=== PATIENT | female | born 1955 | race Caucasian/White ===

== ENCOUNTER 2018-10-28 22:30 | Inpatient (IN) | payer OTHER ==
[~2018-10-28] VITALS: Ht 167.6 cm; Wt 51.0 kg
[2018-10-28 23:57] VITALS: BP 112/85; PULSE 86; TEMP 97.6
[2018-10-29] VITALS (14 sets, daily range): BP systolic 112–173; BP diastolic 70–91; PULSE 80–91; TEMP 97.6–98.7
[2018-10-29 01:02] LABS: BASO % 0.1 % (0.0-2.0); HEMATOCRIT 33.4 % (37.0-47.0); HEMOGLOBIN 11.5 g/dl (12.5-16.0); LYMPH # 0.8 (1.2-3.4); LYMPH % 6.4 % (20.0-51.0); MEAN CELL VOLUME 84 fl (80.0-100.0); MEAN CORPUSCULAR HEMOGLOBIN 29 pg (27.0-31.0); MEAN CORPUSCULAR HGB CONC 34 g/dl (33.0-37.0); MEAN PLATELET VOLUME 10.1 fl (7.4-10.4); MONO # 0.4 (0.1-0.6); MONO % 3.6 % (1.7-9.3); PLATELET COUNT 183 K/mm3 (130-400); RED BLOOD COUNT 3.97 M/mm3 (4.10-5.30); REDCELL DISTRIBUTION WIDTH-CV 13.1 % (11.5-14.5)
[2018-10-29 01:04] LABS: ARTERIAL BLD GAS O2 SATURATION 89.4 % (92-100); ARTERIAL BLD GAS TCO2 CT 22.3; ARTERIAL BLOOD GAS BASE EXCESS -2.6 (-2-2); ARTERIAL BLOOD GAS HCO3 21.3 meq/L (22-26); ARTERIAL BLOOD GAS pH 7.41 (7.35-7.45)
[2018-10-29 01:07] LABS: INR 1.2 (0.8-3.0); PROTHROMBIN TIME 13.3 SECONDS (9.7-12.8)
[2018-10-29 01:36] LABS: ALBUMIN 3.9 gm/dL (3.5-5.0); BILIRUBIN,TOTAL 0.8 mg/dL (0.0-1.0); CREATININE, serum 0.9 (0.52-1.25); POTASSIUM 4.2 mmol/L (3.4-5.0); TOTAL PROTEIN 6.9 gm/dL (6.4-8.2)
[2018-10-29 01:44] LABS: PRE ALBUMIN 20.1 mg/dL (17.6-36.0)
--- NOTE | 2018-10-29 05:27 | NUR ---
Pt arrived on floor transferred from [facility], she has had some C/O pain in her right hip, VS have been stable. Admission assessments have been completed. An 18fr culver has been placed, IV access maintained POLLY hose applied to thwe unaffected leg and SCDs implemented.
--- NOTE | 2018-10-29 06:55 | NUR ---
awake resting in bed, bedside shift report received from WILLIAM Lopez
--- NOTE | 2018-10-29 07:29 | NUR ---
radiology techs here and patient to radiology for CT scan
--- NOTE | 2018-10-29 07:50 | NUR ---
returned per bed from CT scan
--- NOTE | 2018-10-29 08:07 | NUR ---
LUIS ALBERTO Rincon notified of n refugio clearance for surgery
--- NOTE | 2018-10-29 08:15 | NUR ---
resting in bed, full assessment completed, see interventions for further info, #20 G IV started in R forearm,
--- NOTE | 2018-10-29 09:15 | NUR ---
Dr Miller and care team in to see patient
--- NOTE | 2018-10-29 09:33 | NUR ---
to surgery per bed
--- NOTE | 2018-10-29 10:17 | NUR ---
SW attended clinical rounds to discuss discharge planning. Patient will have surgery today. 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 Patient lives in [place] and [facility] [place], [place]. Patient does not use any DME or home health services in the home. Patient does not have a DPOA and is not interested in completing one at this time. Patient's reported that if patient needs post acute rehab, he would like her to go somewhere in [place].
--- NOTE | 2018-10-29 13:15 | NUR ---
returned to room per bed from PACU, awake and alert but sleepy, IV infusing and placed on pump at 100ml/hr, O2 on at 3L/NC adn O2 sat 100%, aquacel dressing to right hip CD&I and ice in place, SCDs and POLLY hose on bilaterally, has sensation to feet and is able to do ankle pumps, visits with
--- NOTE | 2018-10-29 14:30 | NUR ---
appears to be sleeping, resp quiet and easy
--- NOTE | 2018-10-29 15:47 | NUR ---
at bedside, patient continues to sleep
--- NOTE | 2018-10-29 17:18 | NUR ---
resting in bed, offered something to eat but declines at this time
--- NOTE | 2018-10-29 18:47 | NUR ---
bedside shift report given to WILLIAM Guerra
--- NOTE | 2018-10-29 19:30 | NUR ---
REPORT RECEIVED-ASSUMED CARE FOR SECURITY EXPERT. ASSESSMENT COMPLETE. VS STABLE. A&O TO PLACE-"HOSPITAL" AND KNOWS WHO IS IN ROOM WITH HER-. HAS BEEN ALL OVER THE BED-VERY RESTLESS. TEACHING DONE ON KEEPING THE HIP IN CORRECT POSITION. REPOSITIONED WITH PILLOW SUPPORTS. WILL NOT ANSWER BASIC QUESTIONS. STATES SHE IS BEING DIFFICULT AND FEISTY. HAS CRIED DUE TO PAIN BUT REFUSING MEDICATION. OFFERED WATER AND DR PEPPER AND SQUEEZES LIPS SHUT. AQUACELL DRESSING TO RIGHT HIP WITH SMALL DIME SIZE DRAINAGE NOTED. CALL LIGHT IS WITHIN REACH. BED IN LOW POSITION/WHEELS LOCKED. WILL MONITOR.
--- NOTE | 2018-10-29 20:25 | NUR ---
Shift assessment complete. Pt resting in bed, sleepy but easy to wake, a&o, cooperative c cares. Pt denies pain at this time. R hip repair incision noted, aquacell dressing C/D/I. Ice to site. IV x2 patent. Perez to DD. Pt s needs at this time. Call light in reach, will monitor.
[2018-10-30 04:16] VITALS: BP 164/79; PULSE 89; TEMP 98.7
[2018-10-30 06:42] LABS: CALCIUM 7.8 mg/dL (8.4-10.2); CREATININE, serum 0.71 (0.52-1.25)
[2018-10-30 06:51] LABS: BASO % 0.1 % (0.0-2.0); EOS % 0.1 % (0-4.0); GRAN # 9.7 (1.4-6.5); GRAN % 84.1 % (42.2-75.2); LYMPH # 1.1 (1.2-3.4); LYMPH % 9.8 % (20.0-51.0); MEAN CELL VOLUME 84 fl (80.0-100.0); MEAN CORPUSCULAR HGB CONC 35 g/dl (33.0-37.0); MEAN PLATELET VOLUME 10.9 fl (7.4-10.4); MONO # 0.6 (0.1-0.6); MONO % 5.4 % (1.7-9.3); PLATELET COUNT 98 K/mm3 (130-400); RED BLOOD COUNT 2.75 M/mm3 (4.10-5.30); REDCELL DISTRIBUTION WIDTH-CV 13.3 % (11.5-14.5)
[2018-10-30 06:57] LABS: HEMATOCRIT 23.2 % (37.0-47.0); MEAN CORPUSCULAR HEMOGLOBIN 29 pg (27.0-31.0)
--- NOTE | 2018-10-30 07:19 | NUR ---
bedside shift report received from WILLIAM Guerra
--- NOTE | 2018-10-30 07:30 | NUR ---
appears to be dozing, awakened and full assessment completed, is oriented to self and knows she is in the hospital, but when asked about the year and president she doesn't answer she just looks away, her at bedside and she does know who he is, lights turned on and he will try and talk with her and help clear her head. SANDRO Renner in to see patient, patietn denies pain or needs
--- NOTE | 2018-10-30 08:10 | NUR ---
appears to be sleeping, states she has declined breakfast, encouraged him to order her something for breakfast and we will try to get her to eat
[2018-10-30 08:17] VITALS: BP 164/80; PULSE 91; TEMP 98.6
[2018-10-30 08:37] LABS: CHOLESTEROL RISK RATIO 3.4
--- NOTE | 2018-10-30 09:00 | NUR ---
aydee loly is here, repositioned her up in bed and head of bed elevated so she can eat, she says she doesn't want anything to eat, tried to encourage her she needs to eat to get better so she can go back to [place], states she doesn't want to go back, appears she is just being very "stubborn", tried to give her a bite of pancake and she tightens her lips, her is at bedside and also tries, he says she is being very stubborn and feisty
--- NOTE | 2018-10-30 09:30 | NUR ---
Dr Miller and care team in to see patient, physical therapy was in and assisted her up recliner but they stated she was a max assist, she remains very sleepy but when name is called she does arouse, she only answers with short answers and denies being hungry or in pain, Dr Miller spoke with her , will continue to monitor, O2 is off at this time and will recheck O2 sat on room air, IV to INT
--- NOTE | 2018-10-30 09:40 | NUR ---
SW and SW student attended clinical rounds. Patient is not very talkative today. PT and OT will see patient and give their recommendations. SW will contact the [employer] and inquire if they have certain rehab facilities they will cover.
--- NOTE | 2018-10-30 10:29 | NUR ---
Initial visit; Patient and thanked Behavioral Health Tech for looking in on her and offering God's blessings.
--- NOTE | 2018-10-30 10:42 | NUR ---
remains up in chair, begins to answer questions a little more apprpriately, when asked about taking aspirin she refuses, will try again later
[2018-10-30 10:44] LABS: ALBUMIN 2.7 gm/dL (3.5-5.0); BILIRUBIN UNCONJUGATED 0.3 mg/dL (0.0-1.1); BILIRUBIN,DIRECT 0.1 mg/dL (0.0-0.4); BILIRUBIN,TOTAL 0.4 mg/dL (0.0-1.0); TOTAL PROTEIN 5.2 gm/dL (6.4-8.2)
--- NOTE | 2018-10-30 11:15 | NUR ---
in chair and with eyes open, gave her the aspirin and was able to take with Dr Pérez, she does not take the drink but when put to her lips she will take a drink and swallow and not press lips together, took 4-[address] pepper.
[2018-10-30 11:57] VITALS: BP 150/74; PULSE 93; TEMP 98
--- NOTE | 2018-10-30 13:00 | NUR ---
entered room and she appears to be sleeping, awakened and she took am zestril, then she took a few drinks of Dr Pérez and also ate container of vanilla pudding, was incontinent of loose bowel movement, she stood up from chair with assistance and stood while incontinent care provided, then assisted back to chair, moaning and c/o pain while moving, took tylenol 1000mg with drink of Dr Pérez, culver catheter discontinued, at bedside
--- NOTE | 2018-10-30 13:59 | NUR ---
physical therapy was in and assisted her back to bed, she is now sleeping soundly
--- NOTE | 2018-10-30 15:18 | NUR ---
continues to sleep
[2018-10-30 15:50] VITALS: BP 138/77; PULSE 91; TEMP 98.5
--- NOTE | 2018-10-30 15:51 | NUR ---
EBER spoke with patient's about work comp claim. He supplied the report # [id number]. EBER attempted to contact [facility] ([phone]) to inquire if there are certain rehab facilities they will cover. EBER left message.
--- NOTE | 2018-10-30 16:15 | NUR ---
continues to sleep, awakened her and she denies the need to void, checked and has not been incontinent, given sips of Dr Elisa and tolerates well, will order her something for supper and encourage her to eat, remains at bedside
--- NOTE | 2018-10-30 17:14 | NUR ---
ladijason salcido delivered, attempted to feed her and she adamantly refuses, pulls the cover over her head and adamantly says no
--- NOTE | 2018-10-30 18:24 | NUR ---
denies urge to void and refuses to get up to bedside commode
--- NOTE | 2018-10-30 18:53 | NUR ---
a little more talkative and gives the name of her , bedside shift report given to WILLIAM Golden
[2018-10-30 19:35] VITALS: BP 130/64; PULSE 88; TEMP 98.3
--- NOTE | 2018-10-30 21:00 | NUR ---
ATTEMPT MADE TO ADMINISTER HS MEDICATIONS TO INCLUDE ASA, PEPCID, TYLENOL AND SENOKOT. ADAMANTLY REFUSES TO TAKE ANY MEDICATIONS. OFFERED [id number] LIPS SHUT AND WILL NOT TAKE ANYTHING. REPOSITIONED AT THIS TIME. HAD CRAMMED SELF INTO SIDE RAIL, LEGS BENT AND OFF PILLOWS. REFUSES TO STAY IN PROPER ALIGNMENT WITH TEACHING DONE ON NEED FOR PROPER ALIGNMENT FOR HEALING. DENIES NEEDING TO VOID. WILL CONTINUE TO MONITOR.
--- NOTE | 2018-10-31 00:30 | NUR ---
ATTEMPT MADE AGAIN TO ADMINISTER HS MEDICAIONS. REFUSES. WILL NOT DRINK. REPOSITIONED AGAIN-NO SUPPORT TO THE RIGHT EXTREMITY AND REFUSING TO KEEP IN PROPER ALLIGNMENT. WHEN ASKED IF SHE KNOWS WHERE SHE IS SHE STATES "HOSPITAL IN [place]. I BROKE MY DAMN HIP" WILL NOT ANSWER ANY MORE QUESTIONS, WILL NOT EXPRESS PAIN LEVEL OR NEEDS. ROLLS EYES WHEN YOU TRY TO EXPLAIN POSITIONING. BED IS IN LOW POSITION, ALARM SET, CALL LIGHT WITHIN REACH. WILL MONITOR.
--- NOTE | 2018-10-31 02:30 | NUR ---
ATTEMPT MADE TO REPOSITION SHE HAS LEGS BENT NO SUPPORT AND OUT OF ALIGNMENT. DID COOPERATE WITH THIS REPOSITIONING BUT WILL NOT TAKE IN ANY FLUID, MEDICATIONS. INCONTINENT OF URINE. WAS DUE TO VOID POST [place] REMOVAL. NOT ANSWERING ANY QUESTIONS AND BLANKLY STARES AT YOU. SQUEEZES LIPS SHUT. WILL MONITOR.
[2018-10-31 04:37] VITALS: BP 152/68; PULSE 88; TEMP 98.1
--- NOTE | 2018-10-31 05:29 | NUR ---
INCONTINENT OF URINE. SOAKED THE ENTIRE BED SO IT WAS A VERY LARGE VOID. DID NOT EVEN REALIZE THAT SHE HAD DONE THIS. . SHE DID ALLOW US TO ASSIST HER TO A STANDING POSITION USING THE WALKER AND A GAIT BELT BUT IT WAS VERY DIFFICULT FOR HER TO STAND. TWO ASSIST WAS NEEDED AND IT WAS STILL A STRUGGLE TO CONTROL HER. SHE IS IN OBVIOUS PAIN BUT IS DENYING ALL PAIN MEDICATIONS. OFFERED SOME WATER AND SHE DID TAKE A FEW SIPS, NOT MUCH. STILLS SEEMS VERY CONFUSED-ALMOST SEDATED BUT HAS TAKEN NO MEDICATIONS. WILL MONITOR.
[2018-10-31 06:52] LABS: BASO % 0.1 % (0.0-2.0); EOS % 0.3 % (0-4.0); GRAN # 8.8 (1.4-6.5); GRAN % 82.7 % (42.2-75.2); LYMPH # 1.2 (1.2-3.4); LYMPH % 10.9 % (20.0-51.0); MEAN CELL VOLUME 86 fl (80.0-100.0); MEAN CORPUSCULAR HGB CONC 33 g/dl (33.0-37.0); MONO # 0.6 (0.1-0.6); MONO % 5.2 % (1.7-9.3); PLATELET COUNT 112 K/mm3 (130-400); RED BLOOD COUNT 2.69 M/mm3 (4.10-5.30); REDCELL DISTRIBUTION WIDTH-CV 13.1 % (11.5-14.5)
[2018-10-31 06:56] LABS: HEMOGLOBIN 7.6 g/dl (12.5-16.0); MEAN CORPUSCULAR HEMOGLOBIN 28 pg (27.0-31.0)
[2018-10-31 06:57] LABS: CALCIUM 7.7 mg/dL (8.4-10.2); CREATININE, serum 0.75 (0.52-1.25); POTASSIUM 3.5 mmol/L (3.4-5.0)
[2018-10-31 07:27] VITALS: BP 156/75; PULSE 89; TEMP 98.2
--- NOTE | 2018-10-31 08:00 | NUR ---
PATIENT UP TO THE CHAIR WITH PHYSICAL THERAPY THIS MORNING. PATIENT IS DROWSY, BUT AROUSES EASILY TO NAME. PATIENT IS ORIENTED TO SELF. SEE PATIENT MORNING ASSESSMENT. IS PRESENT AT THE BEDSIDE. SMALL AMOUNT OF OLD DRAINAGE PRESENT ON RIGHT HIP AQUACEL DRESSING. POLLY HOSE TO BLE. POSITIVE PEDAL PULSES EQUAL BILATERALLY. CMS INTACT. CAP REFILL < 3 SECONDS. INT TO RIGHT FOREARM. WHEN PATIENT IS ASKED QUESTIONS SHE STARES OFF WITH A GLOSSY-EYED LOOK. PATIENT WIGGLED TOES WHEN ASKED TO SQUEEZE FINGERS. PATIENT IS REFUSING MEDICATIONS AND FOOD. BREAKFAST ORDERED AND ENCOURAGED. NO NEEDS AT THIS TIME. CALL LIGHT WITHIN REACH. CHAIR ALARM ON.
--- NOTE | 2018-10-31 08:25 | NUR ---
Alert but not oriented to place and time. Refuses to answer questions when asked. Appears to be in pain but refuses at this time. Refuses morning medications and breakfast. at bedside. Very helpful with answering questions upon assessment. Shift assessment charted. VSS. Pt resting in bed, staring off in space. Right leg elevated on pillow with ice pack to right hip. Side rails up x3. Call light in reach. Will continue to monitor.
--- NOTE | 2018-10-31 11:01 | NUR ---
PT refused breakfst inititally. Ordered oatmeal. Ate a few bites and sips of ensure for nurse. in room encouraging her to eat now. will continue to monitor.
--- NOTE | 2018-10-31 11:15 | NUR ---
reported pts last surgery she had, that she was in a nonverbal state that she is currently in for 3 days postop. Primary nurse notified.
[2018-10-31 12:00] VITALS: BP 110/68; PULSE 96; TEMP 98.3
--- NOTE | 2018-10-31 13:25 | NUR ---
Pt more comliant this afternoon. Agreed to get on commode to try and use the bathroom to collect a UA. Althrough unsuccessful, pt handle fairly well with 2 assist. Agreed to take tylenol for pain and her B12 pill. Resting in bed with eyes closed at this time. Call light in reach. Will continue to monitor.
[2018-10-31 17:45] VITALS: BP 139/79; PULSE 99; TEMP 98.4
--- NOTE | 2018-10-31 18:26 | NUR ---
PATIENT SLIGHTLY MORE VERBAL THIS AFTERNOON. PATIENT STATED THAT SHE HURT THIS AFTERNOON. WHEN PATIENT WAS OFFERED TYLENOL FOR PAIN SHE SAID YES. PATIENT WAS ABLE TO STATE THAT SHE NEEDED TO USE THE BATHROOM AND WAS ASSISTED TO THE COMMODE THIS AFTERNOON. MEALS AND FLUIDS ENCOURAGED. PATIENT DRINKING MORE TODAY THAN YESTERDAY REPORTED PER . PATIENT ATE SMALL AMOUNT OF BREAKFAST AND ENSURE SHAKES. PATIENT REFUSED LUNCH AND DINNER.
--- NOTE | 2018-10-31 19:07 | NUR ---
REPORT GIVEN TO WILLIAM CLAYTON.
[2018-10-31 19:34] VITALS: BP 138/64; PULSE 93; TEMP 98.7
--- NOTE | 2018-10-31 21:00 | NUR ---
REPORT RECEIVED. ASSUMED CARE FOR VB NET DEVELOPER. ASSESSMENT COMPLETE. VS STABLE. AQUACELL DRESSING TO RIGHT HIP WITH SMALL AMOUNT OF DRAINAGE. VERY RESTLESS TONIGHT-TRIED TO REPOSITION WITH PILLOWS BUT WILL REVERT BACK TO KNEES BENT. REFUSED ALL OF HER HS MEDCATIONS. DOES HAVE S/S PAIN-WILL GRIMACE AND MOAN A LITTLE BUT REFUSING TYLENOL. WAS AT BEDSIDE AT SHIFT CHANGE-SHE WOULD MAKE SMALL TALK. AFTER HE LEFT BACK TO YES/NO ANSWERS OR NOT ANSWERING AT ALL. FRESH ICE PACK APPLIED. ENCOURAGED TO CALL FOR ANY QUESTIONS OR CONCERNS. BED IN LOW POSITION, CALL LIGHT WITHIN REACH, WHEELS LOCKED. WILL MONITOR.
[2018-11-01] VITALS (7 sets, daily range): BP systolic 117–154; BP diastolic 67–79; PULSE 76–82; TEMP 97.9–99.7
--- NOTE | 2018-11-01 01:58 | NUR ---
REPOSITIONED IN BED AT THIS TIME-2 ASSIST. INCONTINENT OF A LARGE URINE, TEA COLORED. TRIED TO STAND AT SIDE OF BED BUT WOULDNT COOPERATE. LINENS CHANGED. CRYING OUT IN PAIN-ENCOURAGED TO TAKE SOME EXTRA STRENGTH TYLENOL. AGREED TO TAKE 1000MG OF TYLENOL, STILL REFUSING OTHER MEDICATIONS. FRESH ICE PACK APPLIED TO RIGHT HIP. BED IN LOW POSITION, WHEELS LOCKED, CALL RESTREPO IN REACH. WILL MONITOR.
[2018-11-01 07:00] LABS: BASO % 0.2 % (0.0-2.0); EOS # 0.1 (0.0-0.7); EOS % 0.8 % (0-4.0); GRAN # 6.7 (1.4-6.5); GRAN % 72.9 % (42.2-75.2); HEMATOCRIT 22.3 % (37.0-47.0); HEMOGLOBIN 7.6 g/dl (12.5-16.0); LYMPH # 1.7 (1.2-3.4); LYMPH % 18.6 % (20.0-51.0); MEAN CELL VOLUME 85 fl (80.0-100.0); MEAN CORPUSCULAR HEMOGLOBIN 29 pg (27.0-31.0); MEAN CORPUSCULAR HGB CONC 34 g/dl (33.0-37.0); MEAN PLATELET VOLUME 10.8 fl (7.4-10.4); MONO # 0.6 (0.1-0.6); PLATELET COUNT 132 K/mm3 (130-400); RED BLOOD COUNT 2.63 M/mm3 (4.10-5.30); REDCELL DISTRIBUTION WIDTH-CV 13.2 % (11.5-14.5)
[2018-11-01 07:06] LABS: CALCIUM 7.9 mg/dL (8.4-10.2); CREATININE, serum 0.8 (0.52-1.25); POTASSIUM 3.3 mmol/L (3.4-5.0)
--- NOTE | 2018-11-01 07:14 | NUR ---
CRITICAL POTASSIUM OF 3.3 CALLED TO [facility].
--- NOTE | 2018-11-01 08:05 | NUR ---
Pt Alert and oriented X4. Sitting up in bed visting with her this am. Ordered breakfast and tolerated morning meds very well. Shift assessment as charted. VSS. SCDs and hong hose on bilateral lower extremities. states she is almost back to her normal self again. Call light in reach. Will continue to monitor.
--- NOTE | 2018-11-01 10:20 | NUR ---
EBER met with patient and about post acute rehab options around [place], [place]. SW provided a list and patient chose 1. [facility] and 2. [facility]. EBER will contact both facilities and fax referrals.
--- NOTE | 2018-11-01 12:50 | NUR ---
TYLENOL 650 MG PO Q6H PRN [facility]ACE[facility] DELA CRUZ TO THIS NURSE.
[2018-11-01 16:56] LABS: RPR (VDRL) XXX
--- NOTE | 2018-11-01 18:32 | NUR ---
END OF SHIFT NOTE. SEE MORNING SHIFT ASSESSMENT. PATIENT SITTING UP IN BED THIS MORNING TALKING WITH HER . PATIENT ANSWERS ALL A&O QUESTIONS APPROPRIATELY. PATIENT ABLE TO IDENTIFY WHERE HER PAIN IS LOCATED. PATIENT TAKING PRN TYLENOL FOR PAIN. PATIENT'S NUTRITIONAL INTAKE IMPROVED. PATIENT GETTING UP TO THE COMMODE. NO INCONTINENT EPISODES THROUGHOUT THE DAY. PRESENT AT THE BEDSIDE THROUGHOUT THE SHIFT. CALL LIGHT WITHIN REACH. BED ALARMS USED.
--- NOTE | 2018-11-01 19:15 | NUR ---
REPORT GIVEN TO WILLIAM TATE.
--- NOTE | 2018-11-01 20:15 | NUR ---
Pt. sitting up in bed watching TV at this time. Pt. is A&OX3, assessment complete. INT to rt. forearm patent. Pt. reports pain to rt. hip at a 4 on pain scale, will give meds per orders. Pt. denies further needs, call light within reach.
[2018-11-02 04:29] VITALS: BP 143/65; PULSE 80; TEMP 98.6
--- NOTE | 2018-11-02 06:01 | NUR ---
Pt. slept well through the night. Pt. remains A&OX3. INT to rt. forearm patent. Pt. did get up to the bathroom 1 time through the night with 1 assist, gait belt and walker. Pt. denies further needs, call light within reach.
[2018-11-02 08:09] LABS: CREATININE, serum 0.74 (0.52-1.25); POTASSIUM 3.3 mmol/L (3.4-5.0)
[2018-11-02 10:11] VITALS: BP 133/72; PULSE 85; TEMP 98
[2018-11-02 12:21] VITALS: BP 113/62; PULSE 79; TEMP 98.2
[2018-11-02 16:05] VITALS: BP 142/75; PULSE 80; TEMP 98.7
--- NOTE | 2018-11-02 18:00 | NUR ---
Pain controlled with prn Tylenol. Mucinex given for c/o cough. Ambulates slowly with walker and assistance. Needs encouragement to increase activity. Family at bedside.
[2018-11-02 20:47] VITALS: BP 134/61; PULSE 89; TEMP 98.4
--- NOTE | 2018-11-02 23:04 | NUR ---
Completed assessment and medication administration; No report pain or discomfort at time of assessment; PT A&Ox4, BS active x4, right hip dressing in place with no increase in drainage; Post right hip replacement pending rehab placement near home in [place]; No further assessment or reported needs at time of exit; PT able to return to a comfortable position in bed with personal items and call light within reach; Will continue to monitor. CDA
[2018-11-03 00:49] VITALS: BP 105/59; PULSE 81; TEMP 99.3
--- NOTE | 2018-11-03 03:14 | NUR ---
PT resting well in bed; No further assessed or verbalized concerns at time of rounds; Will continue to monitor. CDA
[2018-11-03 03:58] VITALS: BP 92/35; PULSE 87; TEMP 97.9
[2018-11-03 04:22] VITALS: BP 131/61
--- NOTE | 2018-11-03 07:02 | NUR ---
Report given to WILLIAM Brooks; No significant changes or concerns at time of shift change. CDA
[2018-11-03 07:48] LABS: BASO % 0.4 % (0.0-2.0); EOS # 0.3 (0.0-0.7); EOS % 2.7 % (0-4.0); GRAN # 6.8 (1.4-6.5); GRAN % 70.2 % (42.2-75.2); LYMPH # 1.8 (1.2-3.4); LYMPH % 18.8 % (20.0-51.0); MEAN CELL VOLUME 86 fl (80.0-100.0); MEAN CORPUSCULAR HGB CONC 33 g/dl (33.0-37.0); MEAN PLATELET VOLUME 10.3 fl (7.4-10.4); MONO # 0.7 (0.1-0.6); MONO % 7.1 % (1.7-9.3); PLATELET COUNT 218 K/mm3 (130-400); RED BLOOD COUNT 2.54 M/mm3 (4.10-5.30); REDCELL DISTRIBUTION WIDTH-CV 13.1 % (11.5-14.5)
[2018-11-03 07:58] LABS: HEMATOCRIT 21.8 % (37.0-47.0); HEMOGLOBIN 7.2 g/dl (12.5-16.0); MEAN CORPUSCULAR HEMOGLOBIN 28 pg (27.0-31.0)
[2018-11-03 08:01] LABS: CALCIUM 8.1 mg/dL (8.4-10.2); CREATININE, serum 0.76 (0.52-1.25); POTASSIUM 3.9 mmol/L (3.4-5.0)
[2018-11-03 11:27] VITALS: BP 90/46; PULSE 84; TEMP 98.7
[2018-11-03 16:14] VITALS: BP 133/65; PULSE 78; TEMP 98.3
--- NOTE | 2018-11-03 18:00 | NUR ---
Right hip aquacell dressing CDI. Ambulated much better today with walker and standby assist. Minimal complaints of pain. Tylenol given.
[2018-11-03 18:32] LABS: COLLECTION METHOD CLEAN CATCH
[2018-11-03 18:38] LABS: MUCOUS Present /lpf; PH 5 (5-8); URINE APPEARANCE Clear; URINE BACTERIA None Seen /hpf; URINE BILIRUBIN Negative (NEGATIVE); URINE BLOOD 1+ (NEGATIVE); URINE COLOR Yellow; URINE GLUCOSE Negative (NEGATIVE); URINE KETONE Negative (NEGATIVE); URINE LEUKOCYTE ESTERASE Negative (NEGATIVE); URINE NITRATE Negative (NEGATIVE); URINE PROTEIN(semi-quant) Negative (NEGATIVE); URINE UROBILINOGEN Negative (NEGATIVE)
[2018-11-03 20:27] VITALS: BP 158/72; PULSE 80; TEMP 98.5
--- NOTE | 2018-11-03 21:50 | NUR ---
Completed assessment and medication administration; PT tolerated all cares well; PT declined the needs for Senokot D/T loose stools during day; PT A&Ox4, BS active x4, AMB with walker, PT able to communicate and answer all assessment questions; No further assessed or verbalized concerns at time of exit; PT reports minimal pain to right hip, administered PRN Tylenol; PT able to return to a comfortable position in bed with personal items and call light within reach; Will continue to monitor. CDA
[2018-11-04 01:00] VITALS: BP 134/59; PULSE 77; TEMP 98.1
--- NOTE | 2018-11-04 01:28 | NUR ---
PT resting well in bed; No further assessed concerns or complaints at time of rounds; Will continue to monitor. CDA
--- NOTE | 2018-11-04 06:45 | NUR ---
awake resting in bed, bedside shift report received from WILLIAM Daniel
--- NOTE | 2018-11-04 06:48 | NUR ---
Report given to WILLIAM Green; No significant changes or concerns at time of shift change. CDA
[2018-11-04 06:56] LABS: BASO % 0.3 % (0.0-2.0); EOS # 0.3 (0.0-0.7); EOS % 3.2 % (0-4.0); GRAN # 5.8 (1.4-6.5); GRAN % 64.3 % (42.2-75.2); LYMPH % 22.3 % (20.0-51.0); MEAN CELL VOLUME 86 fl (80.0-100.0); MEAN CORPUSCULAR HGB CONC 33 g/dl (33.0-37.0); MONO # 0.8 (0.1-0.6); MONO % 8.9 % (1.7-9.3); PLATELET COUNT 295 K/mm3 (130-400); RED BLOOD COUNT 2.52 M/mm3 (4.10-5.30); REDCELL DISTRIBUTION WIDTH-CV 13.2 % (11.5-14.5)
[2018-11-04 07:01] LABS: HEMATOCRIT 21.7 % (37.0-47.0); HEMOGLOBIN 7.2 g/dl (12.5-16.0); MEAN CORPUSCULAR HEMOGLOBIN 29 pg (27.0-31.0)
--- NOTE | 2018-11-04 07:30 | NUR ---
c/o discomfort to right hip, medicated with tylenol 650mg, full assessment completed, see interventions for further info
[2018-11-04 07:47] VITALS: BP 137/70; PULSE 73; TEMP 98.5
--- NOTE | 2018-11-04 08:03 | NUR ---
speech therapy in to work with patient
--- NOTE | 2018-11-04 09:18 | NUR ---
physical therapy in to work with patient, up and ambulated and now in recliner
[2018-11-04] MEDS ORDERED: NICODERM C21 MG/PATC TD (09:27)
[2018-11-04] MEDS ORDERED: TYLENOL 325MG325 MG PO (09:27)
[2018-11-04] MEDS ORDERED: ASPI325T6 PO (09:27)
[2018-11-04] MEDS ORDERED: ZESTRIL 20MG TA20 MG PO (09:27)
[2018-11-04] MEDS ORDERED: DULCOLAX S10 MG/SUPP RC (09:28)
[2018-11-04] MEDS ORDERED: SENOKOT S 50 MG1 TAB PO (09:28)
[2018-11-04] MEDS ORDERED: MUCINEX DM 30 M1 TE1 PO (09:28)
[2018-11-04] MEDS ORDERED: GOOD NEIGH1200 MG/15 PO (09:28)
[2018-11-04] MEDS ORDERED: B-121000 MCG PO (09:29)
[2018-11-04] MEDS ORDERED: PEPCID 20MG TAB20 MG PO (09:29)
--- NOTE | 2018-11-04 09:42 | NUR ---
SW attended clinical rounds. Patient will discharge today to [facility] [place] for senior care, PT and OT. SW will fax discharge orders once they're completed.
[2018-11-04 09:46] VITALS: BP 137/70; PULSE 73; TEMP 98.5
--- NOTE | 2018-11-04 10:50 | NUR ---
discharge instructions given to patient and her , verbalizes understanding, taken out of hospital per WC and assisted her up and into the truck, she was able to take each step up with left and then brought right leg up and entered without difficulty
--- NOTE | 2018-11-04 11:29 | NUR ---
report called to Antonette Noguera in [facility]
== END 2018-11-04 10:50 | DRG 470 ==
LOC: SURG 22:30
PROVIDERS: Hospitalist; Internal Medicine; Nurse Practitioner Family; Orthopaedic Surgery; Physician Assistant; ADMIT Internal Medicine
PROC: 0SR90JA Replacement of Right Hip Joint with Synthetic Substitute, Uncemented, Open Approach (ICD-10-PCS; principal; 2018-10-29 10:30)
DX: S72.011A Unspecified intracapsular fracture of right femur, initial encounter for closed fracture (principal); E72.51 Non-ketotic hyperglycinemia; E87.3 Alkalosis; F01.51 Vascular dementia, unspecified severity, with behavioral disturbance; Z66 Do not resuscitate; W18.30XA Fall on same level, unspecified, initial encounter; J44.9 Chronic obstructive pulmonary disease, unspecified; F17.210 Nicotine dependence, cigarettes, uncomplicated; E87.6 Hypokalemia; D50.0 Iron deficiency anemia secondary to blood loss (chronic); I10 Essential (primary) hypertension; D69.6 Thrombocytopenia, unspecified; E05.90 Thyrotoxicosis, unspecified without thyrotoxic crisis or storm; Z86.73 Personal history of transient ischemic attack (TIA), and cerebral infarction without residual deficits
CPT/HCPCS: 99222-AI; 99232-AI; 99233-AI; 99239; A9284; C1713; C1776; J0690; J2250; J2270; J2704; J3010; J3480; J7030